=== PATIENT | female | born 1945 | race Two or more races ===

== ENCOUNTER 2016-11-29 17:00 | Emergency (ER) | payer OTHER ==
[~2016-11-29] VITALS: Ht 162.6 cm; Wt 90.7 kg
[2016-11-29 17:25] VITALS: BP 130/73
[2016-11-29 18:07] LABS: Basophils # (auto) 0 uL; Basophils % (auto) 0.3 % (0.0-2.0); Eosinophils # (auto) 0.2 uL; Hematocrit 37.7 % (36.0-46.0); Hemoglobin 11.8 g/dL (12.2-16.2); Lymphocytes # (auto) 3.8 uL; Lymphocytes % (auto) 37.7 % (10.0-50.0); Mean Corpuscular Hemoglobin 29.2 pg (28.0-32.0); Mean Corpuscular Hgb Conc. 31.3 g/dL (32.0-36.0); Mean Corpuscular Volume 93.4 fL (80.0-100.0); Monocytes # (auto) 0.7 uL; Monocytes % (auto) 6.8 % (0.0-12.0); Neutrophils # (auto) 5.3 uL; Neutrophils % (auto) 53.2 % (37.0-80.0); Platelet Count (auto) 359 10^3/uL (140-450); Red Cell Distribution Width 13.8 % (11.6-16.0)
[2016-11-29 18:30] LABS: Albumin 3.8 g/dL (3.4-5.0); BUN/Creatinine Ratio 21.9; Bilirubin, Total 0.2 mg/dL (0.2-1.0); Calcium 9.3 mg/dL (8.5-10.1); Total Protein 7.9 g/dL (6.4-8.2)
== END 2016-11-29 19:01 | disposition left against medical advice (07) ==
LOC: EDBD 17:00 → EDUNIT# 17:00 → ER 17:21
DX: R07.9 Chest pain, unspecified (principal); Z53.21 Procedure and treatment not carried out due to patient leaving prior to being seen by health care provider
CPT/HCPCS: 36415; 71010; 80053; 84484; 85025; 85049; 93005

== ENCOUNTER 2017-02-18 19:39 | Observation (INO) | payer OTHER ==
[~2017-02-18] VITALS: Ht 152.4 cm; Wt 92.1 kg
[2017-02-18 21:11] LABS: Basophils # (auto) 0 uL; Basophils % (auto) 0.5 % (0.0-2.0); Eosinophils # (auto) 0.3 uL; Eosinophils % (auto) 2.5 % (0.0-7.0); Hematocrit 32.7 % (36.0-46.0); Hemoglobin 10.9 g/dL (12.2-16.2); Lymphocytes # (auto) 3.8 uL; Lymphocytes % (auto) 36.5 % (10.0-50.0); Mean Corpuscular Hemoglobin 29.7 pg (28.0-32.0); Mean Corpuscular Hgb Conc. 33.2 g/dL (32.0-36.0); Mean Corpuscular Volume 89.4 fL (80.0-100.0); Mean Platelet Volume 8.2 fL (7.4-10.4); Monocytes # (auto) 0.7 uL; Monocytes % (auto) 6.7 % (0.0-12.0); Neutrophils # (auto) 5.5 uL; Neutrophils % (auto) 53.8 % (37.0-80.0); Platelet Count (auto) 444 10^3/uL (140-450); White Blood Cell 10.3 10^3/uL (4.4-10.8)
[2017-02-18 21:21] LABS: Albumin 3.9 g/dL (3.4-5.0); Anion Gap 11 (5-15); Aspartate Aminotransferase 20 U/L (15-37); BUN/Creatinine Ratio 26.3; Blood Urea Nitrogen 25 mg/dL (7-18); Calcium 9.3 mg/dL (8.5-10.1); Carbon Dioxide 24 mmol/L (21-32); Chloride 106 mmol/L (98-107); GFR African American 75 mL/min; GFR Non-African American 62 mL/min; Glucose 87 mg/dL (74-106); Magnesium 2.3 mg/dL (1.6-2.6); Potassium 4.3 mmol/L (3.5-5.1); Sodium 141 mmol/L (136-145)
[2017-02-18 21:26] LABS: Alkaline Phosphatase 71 U/L (45-117); Bilirubin, Total 0.4 mg/dL (0.2-1.0); Total Protein 7.9 g/dL (6.4-8.2)
[2017-02-19 00:31] LABS: Urine Bilirubin Negative (Negative); Urine Blood Negative /uL (Negative); Urine Color Yellow (Yellow); Urine Glucose Normal (Normal); Urine Hyaline Cast MOD /lpf (0 - 2); Urine Ketone TRACE (Negative); Urine Mucus FEW (None Seen); Urine Nitrite Negative (Negative); Urine RBC 3 /hpf (0 - 4); Urine Squamous Epithelial Cell FEW /hpf (<5)
[2017-02-19] MEDS ORDERED: SODIUM CHLORIDE 0.9% 1,000 ML IV ONE (07:04)
[2017-02-19] MEDS ORDERED: METOCLOPRAMIDE HCL 5MG/ml INJ 2ml VIAL IV ONE (07:15)
[2017-02-19] MEDS ORDERED: KETOROLAC TROMETH 30 MG/ML 1ML VIAL IV ONE (07:15)
[2017-02-19 09:39] VITALS: BP 111/68
== END 2017-02-19 11:19 | disposition home or self-care (01) | DRG 392 ==
LOC: ER 19:39 → OVERFLOW 02-19 07:05 → ER 02-19 11:18
PROVIDERS: ADMIT Emergency Medicine; ATTEND Emergency Medicine
DX: R10.10 Upper abdominal pain, unspecified (principal); M25.512 Pain in left shoulder; N39.0 Urinary tract infection, site not specified; M51.36 Other intervertebral disc degeneration, lumbar region; M75.52 Bursitis of left shoulder; M25.551 Pain in right hip; M05.79 Rheumatoid arthritis with rheumatoid factor of multiple sites without organ or systems involvement; E11.9 Type 2 diabetes mellitus without complications; I10 Essential (primary) hypertension; G89.29 Other chronic pain; M54.5 Low back pain; Y99.8 Other external cause status; Y93.89 Activity, other specified; Y92.89 Other specified places as the place of occurrence of the external cause; W01.0XXA Fall on same level from slipping, tripping and stumbling without subsequent striking against object, initial encounter; Z88.0 Allergy status to penicillin
CPT/HCPCS: 36415; 71020; 72100; 80053; 81001; 83735; 84443; 84484; 85025; 96361; 96374; 96375; 99285; G0378; J1885; J2765

== ENCOUNTER 2017-07-10 18:29 | Emergency (ER) | payer OTHER, MEDICAID ==
[~2017-07-10] VITALS: Ht 165.1 cm; Wt 108.4 kg
[2017-07-10 19:15] LABS: Basophils # (auto) 0 uL; Basophils % (auto) 0.3 % (0.0-2.0); CONDITION Y; Eosinophils # (auto) 0.3 uL; Hematocrit 35.5 % (36.0-46.0); Hemoglobin 11.8 g/dL (12.2-16.2); Lymphocytes # (auto) 3.6 uL; Lymphocytes % (auto) 35.9 % (10.0-50.0); Mean Corpuscular Hemoglobin 29.8 pg (28.0-32.0); Mean Corpuscular Hgb Conc. 33.4 g/dL (32.0-36.0); Mean Corpuscular Volume 89.3 fL (80.0-100.0); Mean Platelet Volume 8.2 fL (7.4-10.4); Monocytes # (auto) 0.7 uL; Monocytes % (auto) 6.5 % (0.0-12.0); Neutrophils # (auto) 5.5 uL; Neutrophils % (auto) 54.3 % (37.0-80.0); Platelet Count (auto) 380 10^3/uL (140-450); Red Cell Distribution Width 13.9 % (11.6-16.0); White Blood Cell 10.1 10^3/uL (4.4-10.8)
[2017-07-10 19:38] LABS: Albumin 3.8 g/dL (3.4-5.0); Alkaline Phosphatase 78 U/L (45-117); Anion Gap 7 (5-15); Aspartate Aminotransferase 12 U/L (15-37); BUN/Creatinine Ratio 24.3; Bilirubin, Total 0.2 mg/dL (0.2-1.0); Blood Urea Nitrogen 25 mg/dL (7-18); Calcium 9.2 mg/dL (8.5-10.1); Carbon Dioxide 24 mmol/L (21-32); Chloride 106 mmol/L (98-107); GFR African American 68 mL/min; GFR Non-African American 56 mL/min; Glucose 89 mg/dL (74-106); Potassium 3.8 mmol/L (3.5-5.1); Sodium 137 mmol/L (136-145); Total Protein 8.1 g/dL (6.4-8.2)
[2017-07-11] MEDS ORDERED: LIDOCAINE VISCOUS 2% 15ML UD PO ONE (01:00)
[2017-07-11] MEDS ORDERED: SODIUM CHLORIDE 0.9% 1,000 ML IV ONE (01:00)
[2017-07-11] MEDS ORDERED: ALUM & MAG HYDROX-SIMETH LIQ(MAALOX) 30 ML PO ONE (01:00)
[2017-07-11] MEDS ORDERED: DONNATAL 5ml ORAL Elix (BELLADONNA ALK-PHENOBARB) PO ONE (01:00)
[2017-07-11] MEDS ORDERED: IODIXANOL 320MG/ML 100ML BTL IV ONE (01:04)
[2017-07-11] MEDS ORDERED: IOHEXOL 300 MG/ML 100ML BOTTLE IJ ONE (01:05)
[2017-07-11 02:13] LABS: Urine Bilirubin Negative (Negative); Urine Blood Negative /uL (Negative); Urine Color Yellow (Yellow); Urine Glucose Normal (Normal); Urine Hyaline Cast FEW /lpf (0 - 2); Urine Ketone Negative (Negative); Urine Mucus FEW (None Seen); Urine Nitrite Negative (Negative); Urine RBC 10 /hpf (0 - 4); Urine Squamous Epithelial Cell FEW /hpf (<5); Urine Urobilinogen Normal (Negative)
[2017-07-11] MEDS ORDERED: ACETAMINOPHEN 325 MG TAB PO ONE ×2 (04:57→05:15)
[2017-07-11 05:05] VITALS: BP 128/75
== END 2017-07-11 05:08 | disposition home or self-care (01) ==
LOC: EDSEX 18:29 → EDBD 18:29 → ER 18:30
DX: K29.70 Gastritis, unspecified, without bleeding (principal); N39.0 Urinary tract infection, site not specified; K59.00 Constipation, unspecified; J45.909 Unspecified asthma, uncomplicated; I10 Essential (primary) hypertension; E11.9 Type 2 diabetes mellitus without complications; M19.90 Unspecified osteoarthritis, unspecified site; Z90.710 Acquired absence of both cervix and uterus; Z88.0 Allergy status to penicillin
CPT/HCPCS: 36415; 74176; 80053; 81001; 84484; 85025; 93005; 94761; 96360; 99285; J7030; Q9967

== ENCOUNTER 2019-10-19 21:32 | Emergency (ER) | payer OTHER ==
[~2019-10-19] VITALS: Ht 160 cm; Wt 108.9 kg
[2019-10-19 22:20] LABS: Basophils # (auto) 0.1 uL; Basophils % (auto) 0.5 % (0.0-2.0); Eosinophils # (auto) 0.4 uL; Eosinophils % (auto) 3.3 % (0.0-7.0); Hematocrit 35.3 % (36.0-46.0); Hemoglobin 11.6 g/dL (12.2-16.2); Lymphocytes # (auto) 3.9 uL; Lymphocytes % (auto) 35.5 % (10.0-50.0); Mean Corpuscular Hemoglobin 29.8 pg (28.0-32.0); Mean Corpuscular Hgb Conc. 32.8 g/dL (32.0-36.0); Mean Corpuscular Volume 90.6 fL (80.0-100.0); Monocytes # (auto) 0.8 uL; Monocytes % (auto) 7.6 % (0.0-12.0); Neutrophils # (auto) 5.8 uL; Neutrophils % (auto) 53.1 % (37.0-80.0); Nucleated Red Blood Cells % 0.2 %; Platelet Count (auto) 353 10^3/uL (140-450); Red Blood Cells 3.89 10^6/uL (4.0-5.20); Red Cell Distribution Width 12.9 % (11.8-14.3); White Blood Cell 10.9 10^3/uL (4.4-10.8)
[2019-10-19 22:39] LABS: Albumin 3.7 g/dL (3.4-5.0); Anion Gap 9 (5-15); Blood Urea Nitrogen 23 mg/dL (7-18); Calcium 8.5 mg/dL (8.5-10.1); Carbon Dioxide 22 mmol/L (21-32); Chloride 106 mmol/L (98-107); Glucose 88 mg/dL (74-106); Magnesium 2.2 mg/dL (1.6-2.6); Sodium 137 mmol/L (136-145)
[2019-10-19 22:41] LABS: BUN/Creatinine Ratio 21.5; GFR African American 65 mL/min; GFR Non-African American 53 mL/min
[2019-10-19 22:56] LABS: Alanine Aminotransferase 16 U/L (13-56); Alkaline Phosphatase 82 U/L (45-117); Aspartate Aminotransferase 12 U/L (15-37); Bilirubin, Total 0.2 mg/dL (0.2-1.0); Total Protein 7.8 g/dL (6.4-8.2)
[2019-10-20 00:47] LABS: INR 0.97 (0.9-1.15)
[2019-10-20 01:12] VITALS: BP 94/62
[2019-10-20 02:42] LABS: Urine Bacteria FEW /hpf (None Seen); Urine Blood Negative /uL (Negative); Urine Hyaline Cast FEW /lpf (0 - 2); Urine Mucus FEW (None Seen); Urine Specific Gravity 1.026 (1.001-1.035); Urine WBC 16 /hpf (0 - 5)
== END 2019-10-20 03:06 | disposition home or self-care (01) ==
LOC: ER 21:34
DX: R55 Syncope and collapse (principal); R42 Dizziness and giddiness; R51 Headache; J45.909 Unspecified asthma, uncomplicated; E11.9 Type 2 diabetes mellitus without complications; I10 Essential (primary) hypertension; Z90.710 Acquired absence of both cervix and uterus
CPT/HCPCS: 36415; 70450; 71045; 72125; 73030; 73090; 80053; 81001; 83735; 83880; 84443; 84484; 85025; 85379; 85610; 85730; 93005

== ENCOUNTER 2022-03-17 17:58 | Emergency (ER) | payer OTHER ==
[~2022-03-17] VITALS: Ht 162.6 cm; Wt 74.8 kg
[2022-03-17] MEDS ORDERED: KETOROLAC TROMETH 60MG/2ML VIAL IM ONE (18:45)
[2022-03-17 19:56] LABS: Basophils # (auto) 0 10 ^3/uL (0-0.2); Basophils % (auto) 0.6 % (0.0-2.0); Eosinophils # (auto) 0.4 10 ^3/uL (0-0.8); Eosinophils % (auto) 4.1 % (0.0-7.0); Hematocrit 33.9 % (36.0-46.0); Hemoglobin 11.5 g/dL (12.2-16.2); Lymphocytes % (auto) 33.6 % (10.0-50.0); Mean Corpuscular Hemoglobin 31.1 pg (28.0-32.0); Mean Corpuscular Hgb Conc. 34.1 g/dL (32.0-36.0); Mean Corpuscular Volume 91.3 fL (80.0-100.0); Monocytes # (auto) 0.5 10 ^3/uL (0-1.3); Monocytes % (auto) 5.9 % (0.0-12.0); Neutrophils % (auto) 55.8 % (37.0-80.0); Nucleated Red Blood Cells % 0.2 %; Red Blood Cells 3.71 10^6/uL (4.0-5.20); Red Cell Distribution Width 13.7 % (11.8-14.3); White Blood Cell 8.9 10^3/uL (4.4-10.8)
[2022-03-17 20:12] LABS: Urine Bacteria FEW /hpf (None Seen); Urine Blood Negative /uL (Negative); Urine Specific Gravity 1.031 (1.001-1.035); Urine WBC 5 /hpf (0 - 5)
[2022-03-17 20:12] LABS: BUN/Creatinine Ratio 23.2; Calcium 9.8 mg/dL (8.5-10.1); Potassium 4.4 mmol/L (3.5-5.1)
[2022-03-17 20:14] LABS: Bilirubin, Total 0.3 mg/dL (0.2-1.0); Total Protein 8.2 g/dL (6.4-8.2)
[2022-03-17] MEDS ORDERED: NITR-87 PO (21:53)
[2022-03-17 22:23] VITALS: BP 178/76
== END 2022-03-17 22:23 | disposition home or self-care (01) ==
LOC: ER 17:58
DX: M47.816 Spondylosis without myelopathy or radiculopathy, lumbar region (principal); N39.0 Urinary tract infection, site not specified; J45.909 Unspecified asthma, uncomplicated; E11.9 Type 2 diabetes mellitus without complications; I10 Essential (primary) hypertension; Z90.710 Acquired absence of both cervix and uterus; Z88.0 Allergy status to penicillin
CPT/HCPCS: 36415; 72131; 74176; 80053; 81001; 85025; 96372; 99284; J1885